=== PATIENT | female | born 1995 | race Caucasian/White ===

== ENCOUNTER 2018-02-02 00:53 | Emergency (ER) | payer SELFPAY ==
[~2018-02-02] VITALS: Ht 162.6 cm; Wt 84.0 kg
[2018-02-02] MEDS ORDERED: ONDANSETRON 4MG ODT PO ONE (01:15)
[2018-02-02 01:24] VITALS: BP 114/71
== END 2018-02-02 03:10 | disposition home or self-care (01) ==
LOC: ER 02:26
DX: F10.129 Alcohol abuse with intoxication, unspecified (principal); R11.2 Nausea with vomiting, unspecified
CPT/HCPCS: 99283; Z7610